=== PATIENT | female | born 1980 | race Two or more races ===

== ENCOUNTER 2024-01-15 06:46 | Emergency (ER) | payer MEDICAID, SELFPAY ==
[2024-01-15 06:53] VITALS: BP 109/73; PULSE 73; RESP 18; TEMP 36.8; O2SAT 97
--- NOTE | 2024-01-15 07:01 | XR_ITS ---
Examination: Lumbar spine 3 views Technique one AP lateral coned lateral lower lumbar spine 3 views Exam date and time: January 15, 2024 0856 hrs. Comparison July 19, 2019 Indications: Patient fell 2 days ago with injury to the lower back, lower back pain. Findings: Adequate alignment lumbar vertebral bodies No acute lumbar fracture Mild to moderate degenerative disc disease T11-T12 Impression: No acute lumbar fracture
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
[2024-01-15 08:30] VITALS: BMI 37.2
[2024-01-15 08:51] LABS: HCG Qualitative,Urine Negative
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
[2024-01-15 09:41] VITALS: BP 113/61; PULSE 62; RESP 16; TEMP 36.8; O2SAT 98
== END 2024-01-15 10:29 | disposition home or self-care (01) ==
PROVIDERS: Nurse Practitioner Primary Care; Emergency Provider Emergency Medicine; PCP Family Medicine
DX: S09.90XA Unspecified injury of head, initial encounter (principal); S19.9XXA Unspecified injury of neck, initial encounter; S39.92XA Unspecified injury of lower back, initial encounter; W01.0XXA Fall on same level from slipping, tripping and stumbling without subsequent striking against object, initial encounter
CPT/HCPCS: 70450; 72100; 72125; 81025; 99284

== ENCOUNTER 2024-06-08 18:32 | Emergency (ER) | payer MEDICAID, SELFPAY ==
[2024-06-08 18:33] VITALS: BMI 41.5
[2024-06-08 19:50] VITALS: BP 119/69; PULSE 74; RESP 18; TEMP 36.8; O2SAT 98
--- NOTE | 2024-06-09 02:53 | PD.EDADULT ---
ED General RME/HPI General Chief complaint: Urogenital-Female Stated complaint: Growth to rectal area Time Seen by Provider: 06/08/24 20:20 Arrival date/time: 06/08/24 18:32 44F with no significant PMH presents to ED with several days of painful growth in rectal area. Limitations: no limitations Related Data Previous Rx's ?Medication ?Instructions ?Recorded ibuprofen 800 mg tablet 800 mg PO TID PRN pain #30 tabs 01/15/24 hydrocortisone 2.5 % topical cream 1 applic ME QDAY PRN hemorrhoids 06/08/24 with perineal applicator #30 grams (Anusol-HC) lidocaine 5 % topical cream 1 applic topical BID PRN pain #15 06/08/24 grams Allergies Allergy/AdvReac Type Severity Reaction Status Date / Time No Known Allergies Allergy Verified 04/29/22 17:44 Review of Systems Review of Systems Systems Reviewed: All systems reviewed, normal except as documented Constitutional Constitutional: Reports system reviewed and no additional complaints, except as documented, Denies fever(s) and Denies headache(s) ENT Ears, Nose, Mouth, and Throat: Denies disequilibrium and Denies headache(s) Cardiovascular Cardiovascular: Reports system reviewed and no additional complaints, except as documented, Denies chest pain and Denies dyspnea Respiratory Respiratory: Reports system reviewed and no additional complaints, except as documented, Denies cough and Denies dyspnea Gastrointestinal Gastrointestinal: Reports system reviewed and no additional complaints, except as documented, Denies abdominal pain, Denies nausea and Denies vomiting Integumentary/Breasts Skin/Breast: Reports as per HPI and Reports skin pain Neurologic Neurologic: Reports system reviewed and no additional complaints, except as documented, Denies confusion, Denies disequilibrium and Denies headache(s) Psychiatric Psychiatric: Denies confusion Past Medical History Past Medical History NEUROLOGIC: Negative Neurological Disorders CARDIAC: Negative Cardiac Disorders or Congestive Heart Failure RESPIRATORY: Negative Chronic Obstructive Pulmonary Disease (COPD) or Asthma GASTROINTESTINAL: Negative Gastrointestinal Disorders GENITOURINARY: Negative Genitourinary Disorders or Renal Disease MUSCULOSKELETAL: Negative Musculoskeletal Disorders ENDOCRINE: Positive Diabetes Mellitus Type 2; Negative Diabetes Mellitus Type 1 HEMATOLOGIC: Negative Sickle Cell Disease Social History SMOKING STATUS: Never smoker SUBSTANCE USE: does not use ED Exam General Limitations: Present no limitations General appearance: Present alert and in no apparent distress Head Head exam: Present atraumatic Eye Eye exam: Present normal appearance, PERRL and EOMI ENT ENT exam: Present normal exam, normal oropharynx and mucous membranes moist Neck Neck exam: Present normal inspection, full ROM and trachea midline Chest Chest inspection: Present normal inspection and symmetric chest wall rise Respiratory Respiratory exam: Present normal lung sounds bilaterally Cardiovascular Cardiovascular exam: Present regular rate, normal rhythm and normal heart sounds Abdominal Exam Abdominal exam: Present soft and normal bowel sounds Rectal Exam Rectal exam: Present hemorrhoids Extremities Exam Extremities exam: Present normal inspection and full ROM Back Exam Back exam: Present normal inspection and full ROM Neurological Exam Neurological exam: Present alert, oriented X3 and CN II-XII intact Psychiatric Psychiatric exam: Present normal affect and normal mood Skin Skin exam: Present warm, dry, intact and normal color Course Course Course Narrative: 44F with no significant PMH presents to ED with several days of painful growth in rectal area. Physical exam with varnish filterer reveals external hemorrhoid. Patient is afebrile, calm, and alert. Meds and prevocational/rehabilitation counselor given. Quality Measures none Vital Signs Vital signs: Vital Signs Temperature 98.2 F 06/08/24 19:50 Pulse Rate 74 06/08/24 19:50 Respiratory Rate 18 06/08/24 19:50 Blood Pressure 119/69 06/08/24 19:50 Pulse Oximetry (%) 98 06/08/24 19:50 Oxygen Delivery Method Room Air 06/08/24 19:50 O2 at 98% on RA and WNLs MDM Patient data External records reviewed:: [facility] previous records Clinical information provided by:: patient Social determinants that could affect healthcare access:: none Patient has the following chronic illnesses:: none How is presenting disease/condition affected by chronic disease/condition?: no chronic disease Evaluation data The following diagnostics were reviewed and interpreted by me:: other (specify) (none) Lab and/or radiology exams considered but not ordered:: not ordered Interpretation Summary: n/a Medications Medications considered but not ordered:: not ordered Medication administrations:: n/a Consultations Consultation(s) initiated? (list below): No Diagnosis Differential Diagnosis ED Complaint MDM: hemorrhoid, GI bleed, perianal abscess Most likely diagnosis given after review of the tests above:: hermorrhoid Admission Indicated Admission indicated?: not indicated Explain why admission is indicated or not indicated:: outpatient Admission Request Was there a request for admission?: No Disposition Plan Disposition Plan: Discharge Discharge Attestation Discharge Attestation: The patient and all family members were given an opportunity to ask questions and understood the discharge instructions. Discharge instructions specifically effects, indications for sooner follow up or return to the emergency department, and the expected course of current diagnosis. Patient condition: Stable Medical Decision Making Differential Diagnosis Differential Diagnosis: hemorrhoid, GI bleed, perianal abscess Discharge Plan Plan Patient Disposition: HOME (Self Care) Disposition Comment: Stable Prescriptions/Referrals Prescriptions/Med Rec: New lidocaine 5 % cream 1 applic topical BID PRN (Reason: pain) Qty: 15 0RF Rx Instructions: Use 10-15 min prior to BM hydrocortisone [Anusol-HC] 2.5 % cream with perineal applicator 1 applic ME QDAY PRN (Reason: hemorrhoids) Qty: 30 0RF No Action ibuprofen 800 mg tablet 800 mg PO TID PRN (Reason: pain) Qty: 30 0RF Problem List Clinical Impression: Acute hemorrhoid Patient/Caregiver Discharge Instructions Education Materials: ED Hemorrhoids Additional Instructions: Please follow-up with PCP within 24-48 hours and return immediately if symptoms worsen. Print Language: Chinese Stand Alone Forms: Patient Portal Info Letter BISMARK/ALIZA Supervising Physician BISMARK/ALIZA Supervising Physician: Dr. Buchanan
== END 2024-06-09 00:22 | disposition home or self-care (01) ==
LOC: SERX 21:10
PROVIDERS: Emergency Provider Emergency Medicine
DX: K64.4 Residual hemorrhoidal skin tags (principal)
CPT/HCPCS: 99281